=== PATIENT | male | born 1965 | race Caucasian/White ===

== ENCOUNTER 2017-04-21 10:37 | Emergency (ER) | payer BC, OTHER ==
[2017-04-21] MEDS ORDERED: HYDROCODONE/ACETAMINOPHEN 10/325 MG TAB ONE (11:11)
[2017-04-21] MEDS ORDERED: 0.9% SODIUM CHLORIDE 1000 ML IV BAG IV ONE (11:45)
== END 2017-04-21 13:29 | disposition home or self-care (01) ==
LOC: EDH 10:37
DX: G97.1 Other reaction to spinal and lumbar puncture (principal)
CPT/HCPCS: 96360; 99284; J7030

== ENCOUNTER → 2017-12-23 | Outpatient (CLI) | payer OTHER | END | disposition home or self-care (01) | LOC: OIH 13:31 | PROVIDERS: ATTEND Internal Medicine Nephrology | DX: Z13.6 Encounter for screening for cardiovascular disorders (principal) | CPT/HCPCS: 75571 ==

== ENCOUNTER 2020-12-23 21:24 | Emergency (ER) | payer BC, OTHER ==
[~2020-12-23] VITALS: Ht 185.4 cm; Wt 83.9 kg
[2020-12-23] MEDS ORDERED: TETANUS/DIPHTHERIA TOXOID [ADULT] 0.5 ML VIAL IM ONE (22:00)
[2020-12-23] MEDS ORDERED: ACETAMINOPHEN 500 MG TABLET PO ONE (22:00)
[2020-12-23] MEDS ORDERED: CLINDAMYCIN IVPB 600MG/50ML 50 ML IV SCH (22:00)
[2020-12-23 22:27] LABS: BASOPHILS % (AUTO) 0.6 % (0.0-5.0); EOSINOPHILS % (AUTO) 2.2 % (0.0-8.0); HEMATOCRIT 43.4 % (42-54); LYMPHOCYTES % (AUTO) 17.8 % (21.0-51.0); MEAN CORPUSCULAR HEMOGLOBIN 29.5 pg (27.0-33.0); MEAN CORPUSCULAR HGB CONC 33.9 g/dL (32.0-36.0); PLATELET COUNT (AUTO) 249 K/uL (130-400); RED BLOOD CELL COUNT(AUTO) 4.99 MIL/uL (4.50-6.20); RED CELL DISTRIBUTION WIDTH 13.2 % (11.0-15.5); WHITE BLOOD COUNT (AUTO) 11.2 K/uL (4.8-10.8)
[2020-12-23 22:35] LABS: POTASSIUM 3.6 mmol/L (3.5-5.1)
[2020-12-23 22:40] LABS: BILIRUBIN,TOTAL 0.5 mg/dL (0.2-1.0); CRP QUANTITATIVE 25.5 mg/L (0.00-9.0); TOTAL PROTEIN, SERUM 8.1 g/dL (6.0-8.3)
[2020-12-23] MEDS ORDERED: CEPH500B PO (22:42)
[2020-12-23] MEDS ORDERED: NAPR-1180 PO (22:45)
[2020-12-23 22:47] VITALS: BP 146/88
== END 2020-12-23 23:24 | disposition home or self-care (01) ==
LOC: EDH 21:24
DX: S60.221A Contusion of right hand, initial encounter (principal); S50.11XA Contusion of right forearm, initial encounter; S50.811A Abrasion of right forearm, initial encounter; L03.113 Cellulitis of right upper limb; R03.0 Elevated blood-pressure reading, without diagnosis of hypertension; Z79.1 Long term (current) use of non-steroidal anti-inflammatories (NSAID); W23.0XXA Caught, crushed, jammed, or pinched between moving objects, initial encounter; Y93.89 Activity, other specified; Y92.89 Other specified places as the place of occurrence of the external cause; Y99.8 Other external cause status
CPT/HCPCS: 36415; 73090; 73130; 80053; 85025; 86140; 90471; 90714; 96365; 99284; J3490

== ENCOUNTER → 2024-09-28 | Outpatient (CLI) | payer OTHER ==
[~2024-09-28] MED LIST: CEPH500B PO; NAPR-1180 PO
--- NOTE | 2024-09-29 11:35 | HMCIMG ---
EXAM: MR Lumbar Spine Without Intravenous Contrast. CLINICAL HISTORY: Lumbar radiculopathy. TECHNIQUE: Magnetic resonance images of the lumbar spine in multiple planes. CONTRAST: None. COMPARISON: Prior CT lumbar spine dated 03 September 2016. FINDINGS: For this examination, spinal levels were labeled assuming five [id number], lumbar-type vertebrae, with the inferior labeled L5. No acute fracture. Normal lordotic curvature. Normal vertebral body height and marrow signal, and density. Probable sacralization of the L5 vertebra is identified. Mild disc desiccation at L2-L3, L3-L4, and L4-L5 levels with multilevel degenerative facet arthropathy. Small posterior central annular tear at L4-L5. The rest of the lumbar intervertebral discs are normal in height and hydration. Conus medullaris terminates at the T12-L1 level. No abnormal epidural masses. The surrounding soft tissues are unremarkable. Individual spinal levels are described as follows: T12-L1: No disc bulge or herniation. No neural foraminal, lateral recess, or spinal canal stenosis. L1-L2: Mild disc desiccation with 3.5 mm right paracentral disc bulge. Mild bilateral facet arthropathy and ligamentum flavum hypertrophy. No significant lateral recess or spinal canal stenosis L2-L3: Mild disc desiccation and minimal 3 mm right paracentral disc bulge. No neural foraminal, lateral recess, or spinal canal stenosis. L3-L4: Mild disc desiccation. Minimal 3.5 mm disc bulge. No significant neural or lateral recess narrowing or spinal canal stenosis. L4-L5: Mild disc desiccation and degenerative reduction in disc space. Broad-based circumferential 4 mm disc bulge with mild bilateral facet arthropathy. Mild narrowing of the left neural foramina and left lateral recess. Abutment of the left exiting L4 and traversing the L5 nerve root. L5-S1: No disc bulge or herniation. No neural foraminal, lateral recess, or spinal canal stenosis. IMPRESSION: No evidence of acute fracture or subluxation. Normal vertebral body height. Probable sacralization of the L5 vertebra is identified. Mild disc desiccation at L2-L3, L3-L4, and L4-L5 levels with multilevel degenerative facet arthropathy. Small posterior central annular tear at L4-L5 and mild degenerative changes at the L4-L5 level. Compared to the prior study, redemonstrated are mild degenerative changes at the L3-L4 and L4-L5 levels as described without significant interval progression. /[place]
== END | disposition home or self-care (01) ==
LOC: RAH 12:45
PROVIDERS: ATTEND Family Medicine
DX: M47.26 Other spondylosis with radiculopathy, lumbar region (principal); M51.16 Intervertebral disc disorders with radiculopathy, lumbar region; M48.061 Spinal stenosis, lumbar region without neurogenic claudication
CPT/HCPCS: 72148